=== PATIENT | female | born 1995 | race Caucasian/White ===

== ENCOUNTER → 2019-02-04 | Outpatient (CLI) | payer OTHER ==
[~2019-02-04] MED LIST: FLAGYL500 MG PO; MACRODANTIN50 MG/CA1 PO; PRENATAL PO; VISTARIL 2525 MG/CAP PO
== END ==
LOC: COL.RAD 07:59
DX: N13.0 Hydronephrosis with ureteropelvic junction obstruction (principal); Q62.11 Congenital occlusion of ureteropelvic junction
CPT/HCPCS: A9562

== ENCOUNTER 2019-06-20 09:54 | Emergency (ER) | payer OTHER ==
[~2019-06-20] VITALS: Ht 172.7 cm; Wt 70.5 kg
[2019-06-20 09:56] VITALS: TEMP 98
[2019-06-20 10:33] LABS: COLLECTION METHOD CLEAN CATCH
[2019-06-20 10:36] LABS: BASO % 0.6 % (0.0-2.0); EOS # 0.1 (0.0-0.7); GRAN # 2.7 (1.4-6.5); GRAN % 54.1 % (42.2-75.2); HEMATOCRIT 42.6 % (37.0-47.0); HEMOGLOBIN 14.5 g/dl (12.5-16.0); LYMPH # 1.9 (1.2-3.4); LYMPH % 36.8 % (20.0-51.0); MEAN CELL VOLUME 90 fl (80.0-100.0); MEAN CORPUSCULAR HEMOGLOBIN 31 pg (27.0-31.0); MEAN CORPUSCULAR HGB CONC 34 g/dl (33.0-37.0); MEAN PLATELET VOLUME 9.8 fl (7.4-10.4); MONO # 0.3 (0.1-0.6); MONO % 6.3 % (1.7-9.3); PLATELET COUNT 234 K/mm3 (130-400); RED BLOOD COUNT 4.73 M/mm3 (4.10-5.30); REDCELL DISTRIBUTION WIDTH-CV 12.4 % (11.5-14.5)
[2019-06-20 10:55] LABS: ALANINE AMINOTRANSFERASE 7 U/L (9-52); ALBUMIN 4.6 gm/dL (3.5-5.0); ALKALINE PHOSPHATASE 116 U/L (50-136); ANION GAP 10 mmol/L (7-16); AST,SGOT 25 U/L (15-37); BILIRUBIN,TOTAL 0.5 mg/dL (0.0-1.0); BLOOD UREA NITROGEN 15 mg/dL (7-17); C-REACTIVE PROTEIN < 0.5 mg/dL (0.0-0.9); CALCIUM 10.1 mg/dL (8.4-10.2); CARBON DIOXIDE 25 mmol/L (22-30); CHLORIDE 105 mmol/L (98-107); CREATININE, serum 0.89 (0.52-1.25); GLUCOSE 71 mg/dL (74-106); LIPASE 94 U/L (23-300); POTASSIUM 4.2 mmol/L (3.4-5.0); SODIUM 140 mmol/L (137-145); TOTAL PROTEIN 7.8 gm/dL (6.4-8.2)
[2019-06-20 10:59] LABS: PH 6 (5-8); SQUAMOUS EPITHELIAL 0-2 /hpf; URINE APPEARANCE Clear; URINE BACTERIA Rare /hpf; URINE BILIRUBIN Negative (NEGATIVE); URINE BLOOD 1+ (NEGATIVE); URINE COLOR Straw; URINE GLUCOSE Negative (NEGATIVE); URINE KETONE Negative (NEGATIVE); URINE LEUKOCYTE ESTERASE 3+ (NEGATIVE); URINE NITRATE Negative (NEGATIVE); URINE PROTEIN(semi-quant) Negative (NEGATIVE); URINE UROBILINOGEN Negative (NEGATIVE)
[2019-06-20] MEDS ORDERED: LEVAQUIN 750MG750 M1 PO (12:39)
[2019-06-20] MEDS ORDERED: NORCO 325 MG-51 TAB PO (12:39)
[2019-06-20 13:39] VITALS: BP 112/71; PULSE 68
== END 2019-06-20 13:48 | disposition home or self-care (01) ==
LOC: COL.ER 09:54
PROVIDERS: Emergency Medicine
DX: N13.6 Pyonephrosis (principal)
CPT/HCPCS: J1956; J7030; Q9967

== ENCOUNTER 2019-07-30 08:54 | Day surgery (SDC) | payer OTHER ==
[~2019-07-30] VITALS: Ht 172.7 cm; Wt 68.6 kg
[~2019-07-30 08:54] MED LIST changes: +LEVAQUIN 750MG750 M1 PO; +NORCO 325 MG-51 TAB PO
[2019-07-30 09:52] VITALS: BP 111/64; PULSE 71; TEMP 98.6
--- NOTE | 2019-07-30 10:06 | NUR ---
TO RM 5 AT [phone]-CALL LIGHT IN REACH WENT TO GET SOMETHING TO EAT
[2019-07-30 12:45] VITALS: TEMP 97.6
[2019-07-30 13:20] VITALS: BP 105/53; PULSE 68
--- NOTE | 2019-07-30 13:20 | NUR ---
TO RM 5 PER CART FROM PACU. ALERT ORIENTED X3, TALKING TO STAFF AND . C/O PAIN 01/31. DENIES NAUSEA AT CURRENT TIME. EATING ICE CHIPS FROM PACU.
[2019-07-30 13:35] VITALS: BP 110/70; PULSE 56
--- NOTE | 2019-07-30 13:38 | NUR ---
RECEIVED SPRITE C/O ITCHING, RECEIVED BENADRYL. SITTING UP AND TALKING TO . NO OTHER CHANGES
[2019-07-30] MEDS ORDERED: CIPRO 500MG TA500 MG PO (13:48)
[2019-07-30] MEDS ORDERED: LEVSIN0.125 M1 PO (13:49)
[2019-07-30 13:50] VITALS: BP 99/58; PULSE 54
[2019-07-30] MEDS ORDERED: NORCO 325 MG-51 TAB PO (13:50)
--- NOTE | 2019-07-30 13:50 | NUR ---
RECEIVED ARMANI PUDDING AND ATE ABOUT 1/2
--- NOTE | 2019-07-30 14:10 | NUR ---
AMBULATED TO BATHROOM VOIDED AND TOLERATED WELL OFFICE CALLED FOR FOLLOW UP, OFFICE WILL CALL PATIENT
--- NOTE | 2019-07-30 14:25 | NUR ---
RECEIVED DISCHARGE INSTRUCTIONS AND VERBALIZED UNDERSTANDING.
--- NOTE | 2019-07-30 14:40 | NUR ---
DISCHARGED PER WC BY NURSING STAFF TO PRIVATE CAR IN CARE OF - LINEM[employer] APPRENTICE.
== END 2019-07-30 14:45 | disposition home or self-care (01) ==
LOC: SDCO 08:54
DX: N13.0 Hydronephrosis with ureteropelvic junction obstruction (principal); Z87.440 Personal history of urinary (tract) infections; Z83.3 Family history of diabetes mellitus; Z80.42 Family history of malignant neoplasm of prostate
CPT/HCPCS: C1769; C2617; J0690; J1100; J1170; J1885; J2405; J2704; J3010; J7120